=== PATIENT | female | born 1965 | race Caucasian/White ===

== ENCOUNTER 2021-08-02 02:27 | Inpatient (IN) | payer BC ==
[2021-08-02 05:58] VITALS: BMI 27.8
[2021-08-02] MEDS ORDERED: FLU VACC QS2021-22(6MOS UP)/PF 60 MCG/0.5 ML SYRINGE IM ONE (07:00)
[2021-08-02] MEDS: Acetaminophen 650 MG/20.3 ML UDCUP PO PRN ×4 (08:06→20:19)
[2021-08-02] MEDS ORDERED: hydrALAZINE 25 MG TAB PO PRN (08:53)
[2021-08-02] MEDS: Enoxaparin Sodium 40 MG/0.4 ML SYRINGE SC SCH (09:48)
[2021-08-02] MEDS: Famotidine 20 MG TAB PO SCH ×2 (09:49→20:20)
[2021-08-02] MEDS: traMADol HCl 50 MG TAB PO PRN ×4 (09:54→22:01)
[2021-08-02] MEDS: Oseltamivir 75 MG CAP PO SCH ×2 (10:33→20:20)
[2021-08-02] MEDS: Ondansetron ODT 4 MG TAB PO PRN ×2 (12:20→21:05)
[2021-08-02] MEDS: Cefepime 2 GM in Sodium Chloride 0.9% 100 ML IVPB SCH ×2 (13:52→20:19)
[2021-08-03] MEDS: Acetaminophen 650 MG/20.3 ML UDCUP PO PRN ×2 (03:28→13:36)
[2021-08-03] MEDS: Ondansetron ODT 4 MG TAB PO PRN ×2 (03:29→19:50)
[2021-08-03] MEDS: traMADol HCl 50 MG TAB PO PRN ×2 (03:29→13:33)
[2021-08-03] MEDS: Cefepime 2 GM in Sodium Chloride 0.9% 100 ML IVPB SCH ×3 (05:40→19:50)
[2021-08-03 06:46] LABS: Anion Gap 10 mmol/L (10-20); BUN (Urea Nitrogen) 10 mg/dL (9.8-20.1); Calc. Creatinine Clearance 122 mL/min (70-130); Calcium 9.3 mg/dL (7.8-10.44); Carbon Dioxide 24 mmol/L (22-29); Chloride 105 mmol/L (98-107); Glucose 108 mg/dL (70-105); Potassium 4.1 mmol/L (3.5-5.1); Sodium 135 mmol/L (136-145)
[2021-08-03 06:50] LABS: Hemoglobin 7.4 g/dL (12.0-16.0); Mean Corpuscular HGB CONC 35.7 g/dL (32.0-36.0); Mean Corpuscular Hemoglobin 35.5 pg (27.0-31.0); Mean Corpuscular Volume 99.4 fL (78.0-98.0); Mean Platelet Volume 6.6 fL (7.4-10.4); Platelet Count 88 thou/uL (130-400); RBC Distribution Width 15.5 % (11.5-14.5); Red Blood Cell (RBC) Count 2.07 mill/uL (4.20-5.40); Reflex for Review?? NO; White Blood Cell (WBC) Count 0.6 thou/uL (4.8-10.8)
[2021-08-03 06:58] LABS: Lymphocytes 81 % (21-51); MDiff Complete? YES; Monocytes 12 % (0-10); Neutrophil 4 % (42-75); Ovalocytes SLIGHT = 2-5 cells (100X) (0-1/hpf); Platelet Morphology Comment Appears Decreased; Polychromasia SLIGHT = 2-3 cells (100X) (0-2/hpf); Tear Drops SLIGHT = 2-5 cells (100X) (0-1/hpf)
[2021-08-03] MEDS: Oseltamivir 75 MG CAP PO SCH ×2 (09:40→19:50)
[2021-08-03] MEDS: Enoxaparin Sodium 40 MG/0.4 ML SYRINGE SC SCH (09:40)
[2021-08-03] MEDS: Famotidine 20 MG TAB PO SCH ×3 (09:40→19:51)
[2021-08-03] MEDS: HYDROcodone/Acetaminophen 5/325 mg Tablet PO PRN (17:27)
[2021-08-03] MEDS: TBO-Filgrastim 300 MCG/0.5 ML VIAL SC SCH (17:28)
[2021-08-03] MEDS ORDERED: traMADol HCl 50 MG TAB PO PRN (18:56)
[2021-08-03] MEDS ORDERED: Loratadine 10 MG TAB PO SCH (19:15)
[2021-08-04] MEDS: HYDROcodone/Acetaminophen 5/325 mg Tablet PO PRN ×4 (00:40→22:06)
[2021-08-04 04:45] LABS: Hemoglobin 7.4 g/dL (12.0-16.0); Mean Corpuscular HGB CONC 36.5 g/dL (32.0-36.0); Mean Corpuscular Hemoglobin 36.6 pg (27.0-31.0); Mean Platelet Volume 7.7 fL (7.4-10.4); Platelet Count 71 thou/uL (130-400); RBC Distribution Width 15.4 % (11.5-14.5); Red Blood Cell (RBC) Count 2.03 mill/uL (4.20-5.40); White Blood Cell (WBC) Count 0.5 thou/uL (4.8-10.8)
[2021-08-04 05:02] LABS: Hypochromia SLIGHT = 6-15 cells (100X) (0-5/hpf); MDiff Complete? YES; Macrocytosis SLIGHT = 6-15 cells (100X) (0-5/hpf); Platelet Morphology Comment Appears Decreased
[2021-08-04] MEDS: Acetaminophen 650 MG/20.3 ML UDCUP PO PRN (05:05)
[2021-08-04] MEDS: Cefepime 2 GM in Sodium Chloride 0.9% 100 ML IVPB SCH ×3 (05:06→22:06)
[2021-08-04] MEDS: Famotidine 20 MG TAB PO SCH ×2 (08:30→22:06)
[2021-08-04] MEDS: Oseltamivir 75 MG CAP PO SCH ×2 (08:30→22:06)
[2021-08-04] MEDS: Loratadine 10 MG TAB PO SCH (08:30)
[2021-08-04] MEDS ORDERED: Aspirin/APAP/Caffeine Tab (Excedrin Migraine) PO PRN (13:12)
[2021-08-04] MEDS: TBO-Filgrastim 300 MCG/0.5 ML VIAL SC SCH (15:05)
[2021-08-04] MEDS: Ondansetron PF 4 MG/2 ML Vial IVP PRN (16:15)
[2021-08-05] MEDS: HYDROcodone/Acetaminophen 5/325 mg Tablet PO PRN (01:36)
[2021-08-05] MEDS: Acetaminophen 650 MG/20.3 ML UDCUP PO PRN ×3 (01:36→10:05)
[2021-08-05 05:21] LABS: Hemoglobin 7.2 g/dL (12.0-16.0); Mean Corpuscular HGB CONC 35.9 g/dL (32.0-36.0); Mean Corpuscular Hemoglobin 35.8 pg (27.0-31.0); Mean Corpuscular Volume 99.8 fL (78.0-98.0); Mean Platelet Volume 7.6 fL (7.4-10.4); Platelet Count 62 thou/uL (130-400); RBC Distribution Width 15.1 % (11.5-14.5); White Blood Cell (WBC) Count 0.8 thou/uL (4.8-10.8)
[2021-08-05] MEDS: Cefepime 2 GM in Sodium Chloride 0.9% 100 ML IVPB SCH ×3 (05:27→22:13)
[2021-08-05] MEDS: Ondansetron PF 4 MG/2 ML Vial IVP PRN (05:33)
[2021-08-05 05:53] LABS: Lymphocytes 72 % (21-51); MDiff Complete? YES; Monocytes 20 % (0-10); Neutrophil 8 % (42-75); Platelet Morphology Comment Appears Decreased
[2021-08-05] MEDS ORDERED: Vancomycin 1 GM in Premix Bag 1 BAG IVPB SCH (09:00)
[2021-08-05] MEDS: Loratadine 10 MG TAB PO SCH (10:03)
[2021-08-05] MEDS: Famotidine 20 MG TAB PO SCH ×2 (10:03→20:23)
[2021-08-05] MEDS: Oseltamivir 75 MG CAP PO SCH ×2 (10:03→20:23)
[2021-08-05] MEDS: Vancomycin HCl 1.25 GM in Sodium Chloride 0.9% 250 ML 250 ML IVPB SCH ×2 (10:04→20:23)
[2021-08-05] MEDS ORDERED: Acetaminophen 325 MG TAB PO PRN (10:21)
[2021-08-05] MEDS: TBO-Filgrastim 300 MCG/0.5 ML VIAL SC SCH (14:25)
[2021-08-05] MEDS: Clindamycin 150 MG CAP PO SCH ×2 (15:28→20:22)
[2021-08-05] MEDS: Ibuprofen 800 MG TAB PO PRN (16:33)
[2021-08-06] MEDS: Ibuprofen 800 MG TAB PO PRN (01:47)
[2021-08-06] MEDS: Clindamycin 150 MG CAP PO SCH ×3 (01:47→13:31)
[2021-08-06] MEDS: Cefepime 2 GM in Sodium Chloride 0.9% 100 ML IVPB SCH ×2 (05:31→13:31)
[2021-08-06 06:40] LABS: Hemoglobin 7.3 g/dL (12.0-16.0); Mean Corpuscular HGB CONC 36.2 g/dL (32.0-36.0); Mean Corpuscular Hemoglobin 36.5 pg (27.0-31.0); Mean Platelet Volume 7.9 fL (7.4-10.4); Platelet Count 82 thou/uL (130-400); RBC Distribution Width 15.5 % (11.5-14.5); Red Blood Cell (RBC) Count 2.01 mill/uL (4.20-5.40); White Blood Cell (WBC) Count 2.2 thou/uL (4.8-10.8)
[2021-08-06 06:48] LABS: Anion Gap 10 mmol/L (10-20); BUN (Urea Nitrogen) 12 mg/dL (9.8-20.1); Calc. Creatinine Clearance 126 mL/min (70-130); Calcium 9.6 mg/dL (7.8-10.44); Carbon Dioxide 23 mmol/L (22-29); Chloride 109 mmol/L (98-107); Glucose 98 mg/dL (70-105); Potassium 3.8 mmol/L (3.5-5.1); Sodium 138 mmol/L (136-145)
[2021-08-06 08:11] LABS: Band 20 % (5-11); Lymphocytes 37 % (21-51); MDiff Complete? YES; Metamyelocyte 1 % (0-0); Monocytes 32 % (0-10); Neutrophil 9 % (42-75); Platelet Morphology Comment Appears Decreased; Polychromasia MODERATE = 3-4 cells (100X) (0-2/hpf); Tear Drops SLIGHT = 2-5 cells (100X) (0-1/hpf)
[2021-08-06] MEDS: Vancomycin HCl 1.25 GM in Sodium Chloride 0.9% 250 ML 250 ML IVPB SCH (09:03)
[2021-08-06] MEDS: Loratadine 10 MG TAB PO SCH (09:03)
[2021-08-06] MEDS: Famotidine 20 MG TAB PO SCH (09:03)
[2021-08-06] MEDS: Oseltamivir 75 MG CAP PO SCH (09:03)
[2021-08-06] MEDS ORDERED: TBO-Filgrastim 300 MCG/0.5 ML VIAL SC SCH (15:00)
[2021-08-06 16:52] VITALS: BP 111/72; TEMP 98
== END 2021-08-06 16:30 | disposition home or self-care (01) | DRG 195 ==
LOC: SURG A 03:57
PROVIDERS: ADMIT Student in an Organized Health Care Education/Training Program; ATTEND Internal Medicine
DX: J10.1 Influenza due to other identified influenza virus with other respiratory manifestations (principal); C50.919 Malignant neoplasm of unspecified site of unspecified female breast; I10 Essential (primary) hypertension; E78.00 Pure hypercholesterolemia, unspecified; F17.210 Nicotine dependence, cigarettes, uncomplicated; D70.9 Neutropenia, unspecified; R50.81 Fever presenting with conditions classified elsewhere; K08.89 Other specified disorders of teeth and supporting structures; Z88.8 Allergy status to other drugs, medicaments and biological substances; Z79.82 Long term (current) use of aspirin; Z79.899 Other long term (current) drug therapy
CPT/HCPCS: 36415; 80048; 85025; 87040; J0692; J1447; J1650; J2405; J3370; J3490; J7050; Q0162

== ENCOUNTER 2022-09-30 08:46 | Outpatient (CLI) | payer BC | END 2022-09-30 08:47 | disposition home or self-care (01) | LOC: RAD-FRANK 08:46 | PROVIDERS: ATTEND Nurse Practitioner Family | DX: M25.511 Pain in right shoulder (principal) ==

== ENCOUNTER 2023-09-07 10:17 | Outpatient (CLI) | payer BC | END 2023-09-07 10:18 | disposition home or self-care (01) | LOC: CT 10:17 | PROVIDERS: ATTEND Internal Medicine Hematology & Oncology | DX: Z12.2 Encounter for screening for malignant neoplasm of respiratory organs (principal); Z87.891 Personal history of nicotine dependence | CPT/HCPCS: 71271 ==